=== PATIENT | female | born 1955 | race Caucasian/White ===

== ENCOUNTER → 2016-12-11 | Outpatient (REF) | payer BC ==
[2016-12-11 12:13] LABS: BASOPHILS % (AUTO) 1 % (0-2); EOSINOPHILS # (AUTO) 0.2 10^3uL; EOSINOPHILS % (AUTO) 3 % (0-4); LYMPHOCYTES # (AUTO) 1.4 X10^3; MEAN CORPUSCULAR HGB CONC 33.9 g/dL (31.0-37.0); MEAN CORPUSCULAR VOLUME 80 FL (80-100); MONOCYTES # (AUTO) 0.4 X10^3; MONOCYTES % (AUTO) 7 % (3-11); NEUTROPHILS # (AUTO) 3.6 X10^3; NEUTROPHILS % (AUTO) 64 % (51-67); PLATELET COUNT 205 10^3uL (150-450); WHITE BLOOD COUNT 5.61 10^3uL (4.0-11.0)
[2016-12-11 12:22] LABS: BILIRUBIN,URINE Negative (Negative); CLARITY,URINE Clear; COLOR,URINE Yellow; GLUCOSE, URINE (UA) 3+ (Negative); LEUKOCYTE ESTERASE ,URINE Trace (Negative)
[2016-12-11 12:41] LABS: ALBUMIN 4.2 g/dL (3.4-5.0); ANION GAP 13.4 MEQ/L (3-15); CALCULATED IONIZED CALCIUM 4.4 mg/dL (3.8-4.6); TOTAL PROTEIN 6.9 g/dL (6.4-8.5); URINE CENTRIFUGED VOLUME 10 mL
== END ==
LOC: LAB 11:16
PROVIDERS: ATTEND Nurse Practitioner Family
DX: E11.9 Type 2 diabetes mellitus without complications (principal); E03.4 Atrophy of thyroid (acquired); L29.8 Other pruritus
CPT/HCPCS: 80053; 80061; 81003; 81015; 82043; 83036; 84443; 85025; 87077; 87088; 87186; 87210

== ENCOUNTER → 2016-12-15 | Outpatient (CLI) | payer BC | LOC: LAB 16:52 | PROVIDERS: ATTEND Nurse Practitioner Family | DX: K92.1 Melena (principal) ==

== ENCOUNTER 2017-01-03 06:20 | Day surgery (SDC) | payer BC ==
[~2017-01-03] VITALS: Ht 165.1 cm; Wt 89.0 kg
[~2017-01-03 06:20] MED LIST: ALBU2.5V4 INH; ALBU8.5H2 IH; AZIT250T81 PO; FENO134C PO; FLT11013 INH; FLX20C PO; INSU300I SQ; IPRA3AMP11 INH; LACTATED RINGERS 1,000 ML IV SCH; LVT.025T PO; MELO-249 PO; MELO-255 PO; METF750T2 PO; PRD20T PO; PRED20TA PO; SIMV40TA2 PO; SODIUM CHLORIDE FLUSH 3 ML SYR IV PRN; TRAZ-28 PO
[2017-01-03 06:39] VITALS: BP 139/73
[2017-01-03] MEDS ORDERED: PRAV40TA2 PO (06:46)
[2017-01-03] MEDS ORDERED: LIDOCAINE 4% TOPICAL 4.5 ML SYR ONE (07:00)
[2017-01-03] MEDS ORDERED: SIMETHICONE 40 MG/0.6 ML (MYLICON DROPS) ORAL SYRINGE ONE (07:00)
[2017-01-03] MEDS ORDERED: ALFENTANIL 500 MCG/ML (ALFENTA) 5 ML AMP IV ONE (07:13)
[2017-01-03] MEDS ORDERED: MIDAZOLAM 2 MG/2 ML (VERSED) VIAL ONE (07:13)
[2017-01-03] MEDS ORDERED: PROPOFOL 20 ML IV ONE ×2 (07:13)
[2017-01-03 08:30] VITALS: BP 94/60
[2017-01-03 09:02] VITALS: BP 103/73
--- NOTE | 2017-01-03 12:37 | OPERATIVE REPORT ---
DATE OF OPERATION: 01/03/2017 PRE-OPERATIVE DIAGNOSIS: Melena and constipation POST-OPERATIVE DIAGNOSIS: 1. Gastric fundic polyps. 2. Hiatal hernia. 3. Internal hemorrhoids. 4. Sigmoid diverticula. OPERATIVE PROCEDURE: 1. Esophagogastroduodenoscopy with biopsy. 2. Total colonoscopy SURGEON: Zeyad Honeycutt MD ANESTHESIA: IV conscious sedation, Monitored Anesthesia Services POSITION: Semirecumbent with left rotation for the upper endoscopy and left lateral decubitus for colonoscopy. ESTIMATED BLOOD LOSS: Minimal FINDINGS: 1. A small hiatal hernia. 2. Normal Z-line at 35 cm. 3. A few fundic gastric polyps. 4. Normal upper exam otherwise. 5. The colon was normal with exception of tortuosity of the sigmoid. 6. Small internal hemorrhoids. 7. A few scattered wide mouth sigmoid diverticula. 8. Prep was good. OPERATIVE NOTE: Following satisfactory of induction of analgesia, including topical anesthetic for the oropharynx, a bite block was inserted per os. The gastroscope inserted through the bite block into the oropharynx. The pharynx, vocal cords and larynx appeared normal. The patient was allowed to swallow the scope, which was advanced through the esophagus, stomach and duodenum to the fourth potion, including retroflexed view of the gastric fundus. The above findings were noted. The esophagus, stomach, duodenal bulb and duodenum were otherwise normal. 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 Good hemostasis was noted at the biopsy sites. The above areas were again carefully inspected. Excess CO2 was evacuated and the scope removed. Then patient was repositioned and a digital rectal exam revealed normal sphincter tone with no palpable mass. Next the colonoscope was introduced per rectum and advanced under CO2 insufflation and direct vision. At the mid sigmoid, the patient had a tight turn, which could not be navigated with the colonoscope. Therefore the adult colonoscope was removed and the pediatric colonoscope inserted. With this, and additional maneuvers, the area in the sigmoid could be traversed. The scope was advanced to the cecum. The cecum was identified by convergence of the teniae, the ileocecal valve and palpation of the right lower quadrant. The scope could be retroflexed within the cecum as well. Attempts to intubate the terminal ileum was unsuccessful. The above areas were again carefully inspected as the scope was slowly withdrawn. Retroflexed view of the rectum revealed small internal hemorrhoids, but otherwise normal. Excess insufflated CO2 was evacuated and the scope removed. The patient tolerated the procedure well and transferred to recovery in stable condition. RECOMMENDATIONS: We will obtain a small bowel follow through for additional GI tract evaluation. The patient has already been given information on constipation prevention. She is to return to the office after this study for further evaluation.
== END 2017-01-03 09:31 | disposition home or self-care (01) ==
LOC: ASC 06:20
PROVIDERS: ATTEND Surgery
DX: K92.1 Melena (principal); K31.7 Polyp of stomach and duodenum; K59.09 Other constipation; K64.8 Other hemorrhoids; E03.9 Hypothyroidism, unspecified; E11.9 Type 2 diabetes mellitus without complications; Z79.4 Long term (current) use of insulin; Z79.84 Long term (current) use of oral hypoglycemic drugs; E66.9 Obesity, unspecified; Z68.33 Body mass index [BMI] 33.0-33.9, adult
CPT/HCPCS: 43239; J2250; J7120

== ENCOUNTER → 2017-01-07 | Outpatient (CLI) | payer BC ==
[~2017-01-07] MED LIST changes: -LACTATED RINGERS 1,000 ML IV SCH; +PRAV40TA2 PO; -SODIUM CHLORIDE FLUSH 3 ML SYR IV PRN
--- NOTE | 2017-01-08 12:28 | Diagnostic Imaging Report ---
Exam: Fluoroscopic single contrast small bowel follow-through exam. Date: January 07, 2017. Indication: 61-year-old female, melena. Comparison: None available. Findings: There is an outpouching of contrast extending superior to the third portion of duodenum most compatible with a duodenal diverticulum. This measures up to approximately 2.0 x 1.5 cm in size. There is no hiatal hernia. The small bowel is normal in caliber. There is no identified abnormal fold thickening or stricture. Contrast extends to the level of the cecum. Impression: 1. Duodenal diverticulum arising from the third portion of duodenum measuring up to 2.0 x 1.5 cm in size. 2. Otherwise unremarkable single contrast fluoroscopic small bowel study. Dictated by: Dictated on workstation # [id number]
== END ==
LOC: RAD 09:27
PROVIDERS: ATTEND Surgery
DX: K92.1 Melena (principal)
CPT/HCPCS: 74250